=== PATIENT | male | born 1965 | race Caucasian/White ===

== ENCOUNTER → 2016-08-16 | Outpatient (CLI) | payer OTHER ==
--- NOTE | 2016-08-16 15:10 | XR ---
EXAMINATION TYPE: XR thoraco lumbar junction DATE OF EXAM: 08/16/2016 3:06 PM COMPARISON: NONE HISTORY: Pain TECHNIQUE: 2 views of the thoracolumbar junction submitted. FINDINGS: Pedicles are intact. Slight curvature the spine may be positional. Very mild hypertrophic c hanges seen involving the thoracolumbar junction. Mild degenerative disc disease involving multiple l evels of the lower thoracic spine. Vascular calcifications noted. IMPRESSION: 1. Mild hypertrophic changes involving the lower thoracic spine with mild degenerative disc disease.
--- NOTE | 2016-08-16 15:12 | XR ---
EXAMINATION TYPE: XR cervical spine comp DATE OF EXAM: 08/16/2016 3:06 PM COMPARISON: NONE HISTORY: Neck pain TECHNIQUE: Four views are submitted. FINDINGS: The odontoid is intact. There are no compression deformities. The prevertebral soft tissue structur es are within normal limits. Calcification soft tissue the neck or vascular related to the carotid a rtery. There is a slight retrolisthesis of C4 on C5. Mild degenerative disc disease at C5-C6 noted. F oraminal encroachment at C4-5 and C5-C6 bilaterally. IMPRESSION: 1. Multilevel degenerative disc disease with suspected foraminal encroachment consider MRI follow-up. 2. Right-sided carotid artery calcification.
== END | disposition home or self-care (01) ==
LOC: RADXRMAIN 14:35
PROVIDERS: ATTEND Pediatrics
DX: M51.34 Other intervertebral disc degeneration, thoracic region (principal); M50.322 Other cervical disc degeneration at C5-C6 level
CPT/HCPCS: 72050; 72080

== ENCOUNTER → 2018-06-22 | Outpatient (CLI) | payer BC ==
[2018-06-22 21:25] LABS: Folate, Serum 3.3 ng/mL
== END | disposition home or self-care (01) ==
LOC: LABWHC1 12:43
PROVIDERS: ATTEND Pediatrics
DX: D75.89 Other specified diseases of blood and blood-forming organs (principal); R41.82 Altered mental status, unspecified; Z79.899 Other long term (current) drug therapy
CPT/HCPCS: 36415; 82140; 82607; 82746; 83735

== ENCOUNTER → 2018-06-22 | Outpatient (CLI) | payer BC ==
--- NOTE | 2018-06-22 13:16 | CT ---
EXAMINATION TYPE: CT brain wo con DATE OF EXAM: 06/22/2018 COMPARISON: NONE HISTORY: Altered mental status CT DLP: 1050.8 mGycm. Automated Exposure Control for Dose Reduction was Utilized. TECHNIQUE: CT scan of the head is performed without contrast. FINDINGS: There is no acute intracranial hemorrhage, mass effect, or midline shift identified. The ventricles and sulci are symmetrically prominent compatible with mild age-related volume loss. There is asymmetry in size of the temporal horns with diminutive size of the left temporal horn. This is m arked on coronal series 6 image 33 and axial series 3 image 15 and 16. No discrete vasogenic edema is seen. The globes are intact. There is scant mucosal thickening in the left maxillary and ethmoid si nuses. Remaining paranasal sinuses and mastoid air cells are well aerated. IMPRESSION: 1. No acute intracranial hemorrhage, mass effect, or midline shift is seen. 2. There is diminutive caliber and asymmetric size of the left temporal horn. This may simply be shanika enital in nature. MRI could evaluate for mass effect in the mesial temporal lobes and hippocampi if t here is further clinical concern.
== END | disposition home or self-care (01) ==
LOC: RADCTMAIN 12:26
PROVIDERS: ATTEND Pediatrics
DX: R41.82 Altered mental status, unspecified (principal); R53.1 Weakness; R47.81 Slurred speech
CPT/HCPCS: 70450

== ENCOUNTER → 2018-08-02 | Outpatient (CLI) | payer BC ==
--- NOTE | 2018-08-02 16:18 | MR ---
EXAMINATION TYPE: MR brain wo con DATE OF EXAM: 08/02/2018 COMPARISON: CT brain June 22, 2018 HISTORY: Weakness, AMS, abnormal CT TECHNIQUE: Multiplanar, multisequence imaging of the brain and brainstem is performed without IV cont rast. FINDINGS: Diffusion weighted images demonstrate no evidence of a recent infarct or other diffusion abnormality. There is no worrisome extra-axial fluid collection. There is ventricular and sulcal prominence redemo nstrated. 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 There is occasional focus of tiny T2 hyperintensity in the white matter. Midline structures demonstrate normal morphology. The craniocervical junction appears within normal limits. Normal vascular flow voids are present. The globes are intact bilaterally. Mild mucosal thick ening involving left maxillary sinus and bilateral ethmoid sinuses is redemonstrated. IMPRESSION: Mild diffuse cerebral atrophy and minimal chronic small vessel ischemic change. No suspic ious temporal lobe edema, asymmetry to the temporal horns is presumed of nonclinical significance bec ause of this.
== END | disposition home or self-care (01) ==
LOC: RADMRIMAIN 15:06
PROVIDERS: ATTEND Physician Assistant
DX: G31.9 Degenerative disease of nervous system, unspecified (principal); I67.82 Cerebral ischemia
CPT/HCPCS: 70551

== ENCOUNTER → 2022-02-12 | Outpatient (CLI) | payer BC ==
--- NOTE | 2022-02-15 15:37 | MR ---
EXAMINATION TYPE: MR lumbar spine wo/w con DATE OF EXAM: 02/12/2022 COMPARISON: X-ray thoracolumbar junction August 16, 2016. HISTORY: Low back pain that radiates down both legs, history of surgery on L5-S1. Intervertebral disc degeneration. DDD with radiculopathy. TECHNIQUE: Multiplanar, multisequence images of the lumbar spine is performed without and with IV contrast, util izing 9 mL intravenous Gadavist FINDINGS: Sagittal images of the lumbar spine show vertebral body heights to appear satisfactory. Sli ght grade 1 retrolisthesis L5 on S1. There is disc desiccation L3-L4 through the L5-S1 levels. There is mild disc space narrowing L4-L5 level. Posterior increased signal consistent with annular tear is seen at this level. There is more moderate disc space narrowing with heterogeneous Modic type II endp late changes anteriorly and posteriorly involving the L5-S1 vertebra. Mild multilevel anterior spurri ng. The conus medullaris is normal in position and signal ending at T12-L1 disc space level. Increas ed epidural fat in the mid to lower lumbar spine is noted. There is small hemangioma involving the L4 vertebra sagittal image 10. No abnormal postcontrast enhancement is seen. Axial images show T12-L1 through the L2-L3 levels to appear within normal limits. Axial images at L3-L4 level shows mild broad-based disc bulge and mild facet arthropathy bilaterally. Increased epidural fat is noted. Bilateral neural foramina are patent. Axial images at L4-L5 level shows left paracentral disc protrusion mildly effacing the anterior theca l sac. There is mild facet arthropathy bilaterally. Mild bilateral neural foraminal narrowing. Axial images at L5-S1 level shows moderate facet arthropathy bilaterally. There is mild/moderate broa d disc bulge. There is moderate to severe bilateral neural foraminal narrowing. Bilateral L5 nerve en croachment is likely present sagittal image 12 on the right and image 3 on the left. Paraspinal muscle bulk is maintained. IMPRESSION: Multilevel degenerative changes in the mid to lower lumbar spine as detailed above. Epidu ral lipomatosis is noted.
== END | disposition home or self-care (01) ==
LOC: RADMRIMAIN 15:16
PROVIDERS: ATTEND Physical Medicine & Rehabilitation
DX: M51.16 Intervertebral disc disorders with radiculopathy, lumbar region (principal); M47.26 Other spondylosis with radiculopathy, lumbar region; E88.2 Lipomatosis, not elsewhere classified
CPT/HCPCS: 72158; A9585